=== PATIENT | female | born 1995 | race Caucasian/White ===

== ENCOUNTER 2021-01-09 17:55 | Emergency (ER) | payer OTHER | END 2021-01-09 22:49 | disposition home or self-care (01) | LOC: FER 17:55 | DX: S93.402A Sprain of unspecified ligament of left ankle, initial encounter (principal); E11.9 Type 2 diabetes mellitus without complications; J45.909 Unspecified asthma, uncomplicated; W19.XXXA Unspecified fall, initial encounter | CPT/HCPCS: 73590; 73630; 93971 ==